=== PATIENT | male | born 1975 | race American Indian/Alaskan Native ===

== ENCOUNTER 2018-10-04 09:27 | Emergency (ER) | payer SELFPAY ==
[2018-10-04] MEDS ORDERED: NACL 0.9% 1000 ML 1,000 ML IV ONE (09:50)
[2018-10-04] MEDS ORDERED: DILAUDID IV ONE ×3 (09:50→11:03)
--- NOTE | 2018-10-04 09:52 | Emergency Department Report ---
ED Abdominal Pain HPI - General Chief Complaint: Abdominal Pain Stated Complaint: ABD PAIN Time Seen by Provider: 10/04/18 09:35 Source: patient Mode of arrival: Ambulatory Limitations: No Limitations - History of Present Illness Initial Comments: Patient is a 43-year-old male presents emergency with complaints of left lower quadrant pain and left testicular pain. Patient states the pain is 10 out of 10 worsening. Patient states he's barely able to walk due to the pain. Patient states the pain is better with rest and worse with movement palpation and walking. The patient denies fever and chills. Patient denies dysuria. Patient denies penile discharge. MD Complaint: abdominal pain -: Sudden Location: LLQ Radiation: none Migration to: no migration Severity: severe Severity scale (0 -10): 10 Quality: stabbing Consistency: constant Improves With: rest Worsens With: movement Associated Symptoms: nausea. denies: vomiting, diarrhea, fever, chills, constipation, dysuria, hematemesis, hematochezia, melena, hematuria, anorexia, syncope - Related Data Previous Rx's Medication Instructions Recorded Last Taken Type Azithromycin [Zithromax ORAL PWDR] 1 gm PO ONCE 1 Days #1 packet 10/04/18 Unkn own Rx Ciprofloxacin HCl [Cipro] 500 mg PO BID 10 Days #20 tablet 10/04/18 Unknown Rx HYDROcodone/ACETAMINOPHEN [[place] 1 each PO Q6HR PRN #12 tablet 10/04/18 Unknown Rx 7.5-325 Tablet] Tamsulosin [Flomax] 0.4 mg PO QDAY 14 Days #14 cap 10/04/18 Unknown Rx Allergies Allergy/AdvReac Type Severity Reaction Status Date / Time No Known Allergies Allergy Unverified 10/04/18 09:38 ED Review of Systems ROS: Stated complaint: ABD PAIN Other details as noted in HPI Constitutional: denies: chills, fever Eyes: denies: eye pain, eye discharge, vision change ENT: denies: ear pain, throat pain Respiratory: denies: cough, shortness of breath, wheezing Cardiovascular: denies: chest pain, palpitations Endocrine: no symptoms reported Gastrointestinal: abdominal pain, nausea. denies: vomiting, diarrhea Genitourinary: testicular pain. denies: urgency, dysuria Musculoskeletal: denies: back pain, joint swelling, arthralgia Skin: denies: rash, lesions Neurological: denies: headache, weakness, paresthesias Psychiatric: denies: anxiety, depression Hematological/Lymphatic: denies: easy bleeding, easy bruising ED Past Medical Hx - Past Medical History Previous Medical History?: No - Surgical History Past Surgical History?: No - Family History Family history: no significant - Social History Smoking Status: Never Smoker Substance Use Type: None - Medications Home Medications: Home Medications Medication Instructions Recorded Confirmed Last Taken Type Azithromycin [Zithromax ORAL PWDR] 1 gm PO ONCE 1 Days #1 packet 10/04/18 Unk nown Rx Ciprofloxacin HCl [Cipro] 500 mg PO BID 10 Days #20 tablet 10/04/18 Unknown Rx HYDROcodone/ACETAMINOPHEN [[place] 1 each PO Q6HR PRN #12 tablet 10/04/18 Unknown Rx 7.5-325 Tablet] Tamsulosin [Flomax] 0.4 mg PO QDAY 14 Days #14 cap 10/04/18 Unknown Rx ED Physical Exam - General Limitations: No Limitations General appearance: alert, in no apparent distress - Head Head exam: Present: atraumatic, normocephalic - Eye Eye exam: Present: normal appearance - ENT ENT exam: Present: mucous membranes moist - Neck Neck exam: Present: normal inspection - Respiratory Respiratory exam: Present: normal lung sounds bilaterally. Absent: respiratory distress - Cardiovascular Cardiovascular Exam: Present: regular rate, normal rhythm. Absent: systolic murmur, diastolic murmur, rubs, gallop - GI/Abdominal GI/Abdominal exam: Present: soft, tenderness (left lower quadrant tenderness to palpation), normal bowel sounds - Rectal Rectal exam: Present: deferred - exam: Present: normal inspection, testicular tenderness (left testicular tend erness. Both testicles are in downward lie. No torsion noted), circumcision. Absent: urethral discharge, scrotal swelling, vertical testicular lie - Extremities Exam Extremities exam: Present: normal inspection - Back Exam Back exam: Present: normal inspection - Neurological Exam Neurological exam: Present: alert, oriented X3 - Psychiatric Psychiatric exam: Present: normal affect, normal mood - Skin Skin exam: Present: warm, dry, intact, normal color. Absent: rash ED Course Vital Signs 10/04/18 10/04/18 10/04/18 09:35 12:54 13:53 Temperature 97.7 F Pulse Rate 77 71 71 Respiratory 20 16 18 Rate Blood Pressure 132/66 Blood Pressure 138/75 139/82 [Right] O2 Sat by Pulse 98 95 97 Oximetry - Reevaluation(s) Reevaluation #1: Evaluation done. Patient's testicular exam is negative for torsion. However we'll continue with a ultrasound and a CT of the abdomen. Patient is com plaining of 10 out of 10 pain. Patient was given pain medication. 10/04/18 09:25 And ultrasound results patient patient had a CT. Patient still complaining of severe abdominal pain and was given another dose of Dilaudid. Patient is also complaining of nausea. Patient given Zofran. 10/04/18 11:00 Patient states the pain has improved 10/04/18 11:59 Discussed all results with patient. Patient is stable for discharge. Patient to be discharged home. Patient given discharge instructions. Patient voiced understanding of all instructions. Patient given medication instructions. 10/04/18 12:04 ED Medical Decision Making - Lab Data Result diagrams: 10/04/18 10:02 10/04/18 10:02 - Radiology Data Radiology results: report reviewed ULTRASOUND SCROTAL INDICATION: Testicular pain. COMPARISON: None similar at this institution. FINDINGS: Longitudinal and transverse grayscale and color flow sonographic evaluation of the scrotum and its contents demonstrates normal testicular contour and echotexture bilaterally without suspicious intrinsic lesions. Preserved bilateral blood flow. Right testicle estimated at 5.1 x 2.9 x 4 cm while the left testicle is 5.1 x 2.5 x 3.4 cm. Small bilateral hydroceles. A 1.2 x 0.9 x 0.5 cm unremarkable right epididymis, image 18. Left epididymis measures 1.4 x 1.4 x 1.2 cm, image 32 and demonstrates an approximately 0.3 cm epididymal cyst. It appears slightly heterogeneous, though not significantly hypervascular. CONCLUSION: Subtle left epididymitis not entirely excluded in this patient with small bilateral hydroceles and a small left epididymal head cyst, as described. No sonographic evidence of testicular torsion. Please correlate. CT ABDOMEN AND PELVIS WITH CONTRAST INDICATION: Abdominal pain. COMPARISON: None similar. FINDINGS: Abdomen and pelvis CT performed following intravenous administration of 100 cc of Omnipaque 300. LUNG BASES: Slight cardiomegaly. Right hemidiaphragm approximately 4 cm higher than the left. Slight nonspecific distal esophageal prominence. ABDOMEN: Indeterminate 9 mm posterior right hepatic lobe hypodensity, axial image 57, series 2. Liver also visually slightly hypodense with some fatty infiltration not entirely excluded. Right hepatic lobe 20.5 cm in midclavicular length. Otherwise grossly unremarkable liver, spleen, gallbladder, pancreas, adrenals, aorta and IVC. Normal right kidney. Delayed left nephrogram without evidence of contrast excretion on the delayed phase. Minimal prominence of left intrarenal collecting system and the ureter, extending inferiorly into the pelvis. Subcentimeter/indeterminate bilateral renal cortical hypodensities also noted. No ascites or size significant adenopathy. Nonopacified GI tract evaluation limited, though grossly nonobstructive. Normal appendix. Mild descending colon stool. Small fat containing umbilical hernia with a transverse neck of 1 cm. PELVIS: Left distal ureter leads to small 3-4 mm calculus at the left ureterovesical junction near its orifice as on axial image 187, series 2. Urinary bladder suboptimally distended and assessed, though contrast excretion noted from the right. Seminal vesicles, prostate and rectosigmoid within normal limits. No free fluid or significant adenopathy. Tiny left hydrocele. Approximately 8mm L5 superior endplate Schmorl's node. CONCLUSION: 1. Small 3-4 mm left ureterovesical junction calculus with minimal left system fullness without significant hydronephrosis, as described above. No additional nephrolithiasis suspected, to the extent assessed. 2. Various other incidental findings as at imaged lung bases and upper abdomen, including prominent/enlarged possibly fatty liver, amongst others, as above. - Medical Decision Making She is a 43-year-old male presents emergency room with complaints of left testicle pain and left lower quadrant pain. Patient found to have a left kidney stone and left testicular epididymitis. Patient was treated with antibiotics. Patient stable at discharge. Labs unremarkable. Ultrasound done CT done. All labs discussed and all results discussed with patient. - Differential Diagnosis torsion. Epididymitis. Renal stone. Abdominal pain. Testicular pain. Critical care attestation.: If time is entered above; I have spent that time in minutes in the direct care of this critically ill patient, excluding procedure time. ED Disposition Clinical Impression: Testicular pain, Left testicular pain, Renal stone, Epididymitis Abdominal pain Qualifiers: Abdominal location: left lower quadrant Qualified Code(s): R10.32 - Left lower quadrant pain UTI (urinary tract infection) Qualifiers: Urinary tract infection type: acute cystitis Hematuria presence: with hematuria Qualified Code(s): N30.01 - Acute cystitis with hematuria Disposition: TO HOME OR SELFCARE Is pt being admited?: No Does the pt Need Aspirin: No Condition: Stable Instructions: Kidney Stones (ED), Epididymitis (ED), Urinary Tract Infection in Men (ED), Renal Colic (ED), How to Strain Your Urine (ED), Testicle Pain (ED), Abdominal Pain (ED) Additional Instructions: Patient to follow-up with primary care in 2-3 days. Patient to follow-up with urologist in 2-3 days. Patient to return to ER if condition worsens. Patient take meds as directed. Patient to increase water. Patient to rest. Patient to strain urine. Patient to take Tylenol or ibuprofen when necessary for pain. Prescriptions: Azithromycin [Zithromax ORAL PWDR] 1 gm PO ONCE 1 Days #1 packet Ciprofloxacin HCl [Cipro] 500 mg PO BID 10 Days #20 tablet HYDROcodone/ACETAMINOPHEN [[place] 7.5-325 Tablet] 1 each PO Q6HR PRN #12 tablet PRN Reason: Pain , Severe (7-10) Tamsulosin [Flomax] 0.4 mg PO QDAY 14 Days #14 cap Referrals: SADIQ MENDOZA MD [Primary Care Provider] - 2-3 Days VIVIENNE BEST MD [Staff Physician] - 2-3 Days Time of Disposition: 12:17
[2018-10-04 10:12] LABS: Basophils % (Auto) 0.5 % (0.0-1.8); Eosinophils # (Auto) 0.1 K/mm3 (0.0-0.4); Eosinophils % (Auto) 0.8 % (0.0-4.3); Hematocrit 47.9 % (35.5-45.6); Lymphocytes # (Auto) 2.8 K/mm3 (1.2-5.4); Mean Corpuscular HGB Conc 33 % (32-34); Mean Corpuscular Volume 86 fl (84-94); Monocytes # (Auto) 0.7 K/mm3 (0.0-0.8); Monocytes % (Auto) 7.9 % (0.0-7.3); Platelet Count 192 K/mm3 (140-440); Red Blood Count 5.57 M/mm3 (3.65-5.03)
[2018-10-04 10:33] LABS: Alanine Aminotransferase 38 units/L (7-56); Albumin 4.5 g/dL (3.9-5); BUN/Creatinine Ratio 11; Bilirubin,Direct < 0.2 mg/dL (0-0.2); Blood Urea Nitrogen 11 mg/dL (9-20); Calcium 9.3 mg/dL (8.4-10.2); Hemolysis Index 12
--- NOTE | 2018-10-04 10:55 | Ultrasound Report ---
ULTRASOUND SCROTAL INDICATION: Testicular pain. COMPARISON: None similar at this institution. FINDINGS: Longitudinal and transverse grayscale and color flow sonographic evaluation of the scrotum and its contents demonstrates normal testicular contour and echotexture bilaterally without suspicious intrinsic lesions. Preserved bilateral blood flow. Right testicle estimated at 5.1 x 2.9 x 4 cm while the left testicle is 5.1 x 2.5 x 3.4 cm. Small bilateral hydroceles. A 1.2 x 0.9 x 0.5 cm unremarkable right epididymis, image 18. Left epididymis measures 1.4 x 1.4 x 1.2 cm, image 32 and demonstrates an approximately 0.3 cm epididymal cyst. It appears slightly heterogeneous, though not significantly hypervascular. CONCLUSION: Subtle left epididymitis not entirely excluded in this patient with small bilateral hydroceles and a small left epididymal head cyst, as described. No sonographic evidence of testicular torsion. Please correlate. Thank you for the opportunity to participate in this patient's care.
[2018-10-04] MEDS ORDERED: ZOFRAN IM ONE (11:10)
[2018-10-04] MEDS ORDERED: ZOFRAN ONE (11:11)
[2018-10-04 12:02] LABS: Bilirubin,Urine SM (Negative); Blood,Urine LG (Negative); Color,Urine Amber (Yellow); Mucus,Urine 3+ /HPF; Urobilinogen,Urine < 2.0 mg/dL (<2.0)
[2018-10-04 12:04] LABS: RBC,Urine > 182.0 /HPF (0.0-6.0)
[2018-10-04 12:07] LABS: Ictotest,Urine Negative (Negative)
--- NOTE | 2018-10-04 12:09 | Cat Scan Report ---
CT ABDOMEN AND PELVIS WITH CONTRAST INDICATION: Abdominal pain. COMPARISON: None similar. FINDINGS: Abdomen and pelvis CT performed following intravenous administration of 100 cc of Omnipaque 300. LUNG BASES: Slight cardiomegaly. Right hemidiaphragm approximately 4 cm higher than the left. Slight nonspecific distal esophageal prominence. ABDOMEN: Indeterminate 9 mm posterior right hepatic lobe hypodensity, axial image 57, series 2. Liver also visually slightly hypodense with some fatty infiltration not entirely excluded. Right hepatic lobe 20.5 cm in midclavicular length. Otherwise grossly unremarkable liver, spleen, gallbladder, pancreas, adrenals, aorta and IVC. Normal right kidney. Delayed left nephrogram without evidence of contrast excretion on the delayed phase. Minimal prominence of left intrarenal collecting system and the ureter, extending inferiorly into the pelvis. Subcentimeter/indeterminate bilateral renal cortical hypodensities also noted. No ascites or size significant adenopathy. Nonopacified GI tract evaluation limited, though grossly nonobstructive. Normal appendix. Mild descending colon stool. Small fat containing umbilical hernia with a transverse neck of 1 cm. PELVIS: Left distal ureter leads to small 3-4 mm calculus at the left ureterovesical junction near its orifice as on axial image 187, series 2. Urinary bladder suboptimally distended and assessed, though contrast excretion noted from the right. Seminal vesicles, prostate and rectosigmoid within normal limits. No free fluid or significant adenopathy. Tiny left hydrocele. Approximately 8mm L5 superior endplate Schmorl's node. CONCLUSION: 1. Small 3-4 mm left ureterovesical junction calculus with minimal left system fullness without significant hydronephrosis, as described above. No additional nephrolithiasis suspected, to the extent assessed. 2. Various other incidental findings as at imaged lung bases and upper abdomen, including prominent/enlarged possibly fatty liver, amongst others, as above. Thank you for the opportunity to participate in this patient's care.
[2018-10-04] MEDS ORDERED: TORADOL IV ONE (12:18)
[2018-10-04] MEDS ORDERED: ROCEPHIN/NS 2 GM/100 ML 2 GM/100 ML BAG IV ONE (13:15)
[2018-10-06 11:45] VITALS: BP 139/82
== END 2018-10-04 13:10 | disposition home or self-care (01) ==
LOC: ED 09:27
DX: N30.01 Acute cystitis with hematuria (principal); N45.1 Epididymitis; N20.0 Calculus of kidney
CPT/HCPCS: 36415; 74177; 80048; 80076; 81001; 85025; 93975; 96365; 96372; 96375; 96376; 99284; J0696; J1170; J1885; J2405; J7030; Q9967